=== PATIENT | female | born 1960 | race Caucasian/White ===

== ENCOUNTER 2017-04-24 09:13 | Outpatient (CLI) | payer OTHER | END 2017-04-24 20:21 | disposition home or self-care (01) | LOC: SMA 09:13 | PROVIDERS: ATTEND Family Medicine | DX: Z12.31 Encounter for screening mammogram for malignant neoplasm of breast (principal) | CPT/HCPCS: G0202 ==

== ENCOUNTER 2017-10-23 14:19 | Outpatient (CLI) | payer OTHER | END 2017-10-23 20:26 | disposition home or self-care (01) | LOC: SMA 14:19 | PROVIDERS: ATTEND Family Medicine | DX: R92.0 Mammographic microcalcification found on diagnostic imaging of breast (principal) | CPT/HCPCS: 77065 ==